=== PATIENT | male | born 1975 | race Caucasian/White ===

== ENCOUNTER 2016-09-06 07:21 | Emergency (ER) | payer BC ==
[2014-12-22 12:59] VITALS: BMI 38.8
[~2016-09-06 07:21] MED LIST: AMBIEN10 MG PO; BACTRIM DS TABL1 TAB PO; BACTROBAN CREAM15 GM TP; CLEOCIN HCL300 MG PO; CYMBALTA30 MG PO; GLIMEPIRIDE4 MG PO; GLUCOPHAGE1000 MG PO; HYDROCHLOROTH12.5 M1 PO; INVOKANA300 MG PO; MOTRIN800 MG PO; NEURONTIN800 MG PO; NORCO 7.5-3251 EACH PO; NUCYNTA100 MG PO; REQUIP0.5 MG PO; ROBAXIN500 MG PO; ZESTORETIC 10/11 TAB PO
[2016-09-06 07:49] LABS: BASOPHILS 0.2 % (0.0-2.0); EOSINOPHILS 2.9 % (0-7); HEMATOCRIT 51.1 % (42.0-54.0); HEMOGLOBIN 17.2 g/dL (13.5-17.5); IMMATURE GRANULOCYTES 0.3 % (0-5); LYMPHOCYTES 44.5 % (15-50); MCH 30.8 pg (26.0-34.0); MCHC 33.7 g/dL (31.0-37.0); MCV 91.6 fL (80.0-100.0); MEAN PLATELET VOLUME 10.6 fL (7.4-10.4); MONOCYTES 10.1 % (2-11); RBC 5.58 10x6/uL (4.20-6.10); RDW 13.8 % (11.5-14.5); WBC 14.2 10x3/uL (4.8-10.8)
[2016-09-06 08:04] LABS: ALKALINE PHOSPHATASE 78 U/L (46-116); ALT (SGPT) 127 U/L (10-68); BILIRUBIN - TOTAL 0.47 mg/dL (0.2-1.3); CALC OSMOLALITY 281 mosm/kg (275-300); CALCIUM 10.7 mg/dL (8.5-10.1); CARBON DIOXIDE 23.8 mmol/L (21.0-32.0); CHLORIDE - SERUM 101 mmol/L (98-107); CREATININE - SERUM 1.3 mg/dL (0.6-1.3); GLUCOSE 140 mg/dL (74-106); PLATELET COUNT 193 10x3/uL (130-400); POTASSIUM - SERUM 4.7 mmol/L (3.5-5.1); PROTEIN - SERUM 8.2 g/dL (6.4-8.2); SODIUM 138 mmol/L (136-145); UREA NITROGEN 24 mg/dL (7-18); eGFR NON AFRICAN AMERICAN 64 mL/min (90-120)
[2016-09-06 08:13] LABS: CHOLESTEROL, TOTAL 154 mg/dL (0-200); CKMB 1.6 U/L (0.0-3.6); CREATINE KINASE 108 UL (21-232); HDL CHOLESTEROL 31 mg/dL (32-96); MAGNESIUM - SERUM 1.7 mg/dL (1.8-2.4); TROPONIN-I < 0.017 ng/mL (0.000-0.060)
[2016-09-06 08:14] LABS: TRIGLYCERIDE 558 mg/dL (30-200)
== END 2016-09-06 10:20 | disposition home or self-care (01) ==
LOC: D.ER 07:21
PROVIDERS: Emergency Medicine
DX: R07.9 Chest pain, unspecified (principal); E11.9 Type 2 diabetes mellitus without complications; R74.0 Nonspecific elevation of levels of transaminase and lactic acid dehydrogenase [LDH]

== ENCOUNTER 2016-10-09 10:52 | Outpatient (CLI) | payer BC ==
[~2016-10-09] VITALS: Ht 188 cm; Wt 128.2 kg
--- NOTE | ~2016-10-09 | HEMODYNAMI ---
PATIENT:DEYSI FIORE MEDICAL RECORD: [id number] : 71 LOCATION:[facility] ADMISSION DATE: 10/09/16 Generatedon:10/09/201613:58 Patient name: DEYSI FIORE Patient #: [id number] SSN: : 1975 Date of study: 10/09/2016 Page: Of Hemodynamic Procedure Report Patient Data Patient Demographics Procedure consent was obtained First Name: DEYSI Gender: Male Last Name: ADEBAYO : 1975 Middle Initial: LUISA Age: 41 year(s) Patient #: [id number] Race: Additional ID: [id number] Contact details Address: [address] [place] [address] [facility] State: [place] City: [place] Zip code: [address] Past Medical History Allergies: No known allergies Admission Admission Data Admission Date: 10/09/2016 Admission Time: 10:52 Height (in.): 74 BSA: 2.51 (m2) Height (cm.): 187.96 BMI: 36.21 (kg/m2) Weight (lbs.): 282 Weight (kg.): 127.91 Lab Results Lab Result Date: 10/09/2016 Lab Result Time: 0:00 Biochemistry Name Units Result Min Max BUN mg/dl 23 --(----)-* 7 18 Creatinine mg/dl 1.1 --(--*-)-- 0.6 1.3 CBC Name Units Result Min Max Hemoglobin g/dl 16 --(--*-)-- 13.5 17.5 Procedure Procedure Types Cath Procedure Diagnostic Procedure LHC LHC w/Coronaries Procedure Description Procedure Date Procedure Date: 10/09/2016 Procedure Start Time: 13:43 Procedure End Time: 13:56 Procedure Staff Name Function Daniel Childress MD Performing Physician Hussein Suazo RT Scrub Kelly Galloway RN Nurse Felipe Tanner RT Job Spotter Emile Banks RT Monitor Procedure Data Cath Procedure Fluoroscopy Diagnostic fluoroscopy Total fluoroscopy Time: 2 time: 2 min min Diagnostic fluoroscopy Total fluoroscopy dose: 850 dose: 850 mGy mGy Contrast Material Contrast Material Type Amount (ml) Isovue 300 74 Entry Location Entry Primary Successful Side Size Upsize Upsize Entry Closure Cunningham ccessful Closure Location (Fr) 1 (Fr) 2 (Fr) Remarks Device Remarks Radial Right 6 Fr Mechanical artery Short Compression Procedure Complications No complications Procedure Medications Medication Administration Route Dosage Oxygen NC 2 l/min Heparin Flush Bag added to field 2 bags (1000units/500ml NS) Lidocaine 2% added to field 20 Radial Cocktail added to field 1 syringe (Verapomil 2mg/Nitro 400mcg/Heparin 1500units) Radial Cocktail I.A. 1 syringe (Verapomil 2mg/Nitro 400mcg/Heparin 1500units) Versed I.V. 1 mg Fentanyl I.V. 50 mcg Versed I.V. 1 mg Fentanyl I.V. 50 mcg Versed I.V. 1 mg Fentanyl I.V. 50 mcg Hemodynamics Rest BSA: 2.51 (m2) HGB: 16 (g/dl) O2 Consumption: Estimated: 309.22 (ml/min) O2 Cons umption indexed: Estimated:123.2 (ml/min/m) Heart Rate: 75 (bpm) Pressure Samples Time Site Value (mmHg) Purpose Heart Use Rate(bpm) 13:47 LV 89/7,9 EDP 74 Gradients Valve Time Site Site Mean SEP/DFP Peak To Heart Use 1 2 (mmHg) (sec/min) Peak Rate (mmHg) (bpm) Aortic 13:48 LV AO 81 Snapshots Pre Cath Intra NCS Post Cath Vital Signs Time Heart Resp SPO2 etCO2 [id number] NIBP Rhythm Pain Sedation Rate (ipm) (%) (mmHg) (mmHg) (mmHg) Status Level (bpm) 13:26:48 67 15 98 0 0 115/62(89) NSR 0 (11) 10(A) , No pain 13:31:06 75 15 98 0 0 118/75(92) NSR 0 (11) 10(A) , No pain 13:35:26 76 14 97 0 0 117/71(96) NSR 0 (11) 10(A) , No pain 13:39:48 67 15 96 0 0 106/66(90) NSR 0 (11) 10(A) , No pain 13:44:04 80 15 97 0 0 110/66(87) NSR 0 (11) 9(A) , No pain 13:48:20 88 15 98 0 0 108/50(71) NSR 0 (11) 9(A) , No pain 13:52:39 86 15 96 0 0 104/65(84) NSR 0 (11) 9(A) , No pain 13:55:53 84 16 97 0 0 106/61(79) NSR 0 (11) 9(A) , No pain Medications Time Medication Route Dose Verified Delivered Reason Notes Effectiveness by by 13:28:12 Oxygen NC 2 l/min Daniel Kelly Per [place] G[place] RN physician 13:28:21 Heparin Flush added 2 bags Daniel Daniel used for Bag to [place] procedure (1000units/500ml field MD HUSSEIN NS) 13:28:27 Lidocaine 2% added 20ml Daniel Daniel used for to vial [place] procedure field MD HUSSEIN 13:28:34 Radial Cocktail added 1 Daniel Daniel used for (Verapomil to syringe [place] procedure 2mg/Nitro field MD HUSSEIN 400mcg/Heparin 1500units) 13:39:21 Versed I.V. 1 mg Daniel Kelly for sedation St. Deysi Galloway RN, MD 13:39:37 Fentanyl I.V. 50 mcg Daniel Kelly for sedation St. Deysi Galloway RN, MD 13:41:50 Versed I.V. 1 mg Daniel Kelly for sedation St. Deysi Galloway RN, MD 13:41:58 Fentanyl I.V. 50 mcg Daniel Kelly for sedation St. Deysi Galloway RN, MD 13:43:40 Fentanyl I.V. 50 mcg Daniel Kelly for sedation St. Deysi Galloway RN, MD 13:43:52 Versed I.V. 1 mg Daniel Kelly for sedation St. Deysi Galloway RN, MD 13:45:00 Radial Cocktail I.A. 1 Daniel Daniel for (Verapomil syringe [place] vasodilation 2mg/Eve HUSSEIN MD 400mcg/Heparin 1500units) Procedure Log Time Note 13:05:42 Felipe MANLEY(R) (CV) sent for patient. Start room use. 13:17:36 ACC Patient presents with Stable Angina CCS Anginal Class 2--Slight limitation of ordinary activity. 13:17:39 Diagnostic Cath status Elective 13:18:53 Time tracking: Regular hours 13:18:58 Plan of Care:Hemodynamics will remain stable., Cardiac rhythm will remain stable., Comfort level will be maintained., Respiratory function will remain adequate., Patient/ family verbilizes understanding of procedure., Procedure tolerated without complication., Recovers from procedure without complications.. 13:19:26 Patient received from Pre/Post Procedure Room to CCL 1 Alert and oriented. Tansferred to table in Supine position. 13:19:32 Warm blankets applied, and braden hugger turned on for patient comfort. 13::32 Correct patient and procedure confirmed by team. ::34 Signed procedure consent form obtained from patient. 13::35 ECG and BP/O2 sat monitors applied to patient. 13:25:34 Vital chart was started 13:28:12 Oxygen 2 l/min NC was given by Kelly Galloway RN; Per physician; 13:28:21 Heparin Flush Bag (1000units/500ml NS) 2 bags added to field was given by Daniel Childress MD; used for procedure; 13:28:27 Lidocaine 2% 20ml vial added to field was given by Daniel Childress MD; used for procedure; 13:28:34 Radial Cocktail (Verapomil 2mg/Nitro 400mcg/Heparin 1500units) 1 syringe added to field was given by Daniel Childress MD; used for procedure; ::58 Baseline sample Acquired. 13:29:02 Rhythm: sinus rhythm 13:29:03 Full Disclosure recording started 13:29:12 H&P Date Dictated: 09/25/2016 Within 30 days and on chart., H&P Addendum completed by physician on day of procedure. (MUST COMPLETE FOR ALL OUTPATIENTS). 13:29:14 Pre-procedure instructions explained to patient. 13:29:15 Pre-op teaching completed and patient verbalized understanding. 13:29:16 Family in waiting room. 13:29:18 Patient NPO since Midnight. 13:29:33 Patient allergic to No known allergies 13:29:35 Is the patient allergic to Iodine/contrast media? No. 13:29:41 Is patient on blood thinner?No 13:29:43 Patient diabetic? Yes. 13:29:44 If diabetic: On Metformin? Yes 13:29:47 If on Metformin: Last Dose? 10/08/2016 13:29:49 ----Pre-sedation anethsthesia assessment.---- 13:29:52 Previous problem with sedation/anesthesia? No ? 13:29:53 Snore? Yes 13:29:55 Sleep apnea? No 13:29:56 Deviated septum? No 13:29:57 Opens mouth fully? Yes 13:29:59 Sticks out tongue? Yes 13:30:01 Airway obstruction? No ? 13:30:03 Dentures? No ? 13:30:10 Pre procedure: right dorsailis pedis pulse 1+ Palpable, but thready & weak; easily obliterated 13:30:14 Modified Nikos's test Ulnar < 7 seconds 13:30:16 Patient pain scale 0/10 ?. 13:30:26 IV patent on arrival in left antecubital with 0.9% NaCl at 10ml/hr. 13:38:53 Right Radial & Right Groin area was prepped with chlora-prep and draped in sterile fashion 13:38:53 Alarms reviewed by R. N. 13:38:54 Sharps counted by scrub and verified by R.N. 13:39:00 --------ALL STOP TIME OUT------ 13:39:00 Final Timeout: patient, procedure, and site verified with staff and physician. All members of the team are in agreement. 13:39:02 Right Radial & Right Groin site verified by team. 13:39:05 Physical assessment completed. ASA score P 2 - A patient with mild systemic disease as per Daniel Childress MD. 13:39:12 Sedation plan: IV Moderate Sedation Versed, Fentanyl 13:39:21 Versed 1 mg I.V. was given by Kelly Galloway RN; for sedation; 13:39:37 Fentanyl 50 mcg I.V. was given by Kelly Galloway RN; for sedation; 13:41:24 Patient Height : 74 inches 13:41:29 Patient Weight : 282 lbs 13:41:50 Versed 1 mg I.V. was given by Kelly Galloway RN; for sedation; 13:41:58 Fentanyl 50 mcg I.V. was given by Kelly Galloway RN; for sedation; 13:42:44 Zero performed for pressure channel P1 13:42:47 Zero performed for pressure channel P1 13:42:49 Zero performed for pressure channel P1 13:42:58 Zero performed for pressure channel P1 13:43:05 Use device set Radial Dx 13:43:06 Acist Syringe opened to sterile field. 13:43:07 Medline Cath Pack opened to sterile field. 13:43:07 Bag Decanter opened to sterile field. 13:43:08 Terumo 6Fr Slender Glidesheath opened to sterile field. 13:43:08 St Сергей 260cm J .035 wire opened to sterile field. 13:43:08 Acist Hand Control opened to sterile field. 13:43:09 Acist Manifold opened to sterile field. 13:43:09 Tegaderm 4 x 4 opened to sterile field. 13:43:11 Procedure started. 13:43:33 Local anesthetic to right radial artery with Lidocaine 2% by Daniel Childress MD.INITIAL ACCESS ONLY 13:43:40 Fentanyl 50 mcg I.V. was given by Kelly Galloway RN; for sedation; 13:43:41 A 6 Fr Short sheath was inserted into the Right Radial artery 13:43:52 Versed 1 mg I.V. was given by Kelly Galloway RN; for sedation; 13:45:00 Radial Cocktail (Verapomil 2mg/Nitro 400mcg/Heparin 1500units) 1 syringe I.A. was given by Daniel Childress MD; for vasodilation; 13:45:00 Lab Result : Hemoglobin 16 g/dl 13:45:00 Lab Result : Creatinine 1.1 mg/dl 13:45:00 Lab Result : BUN 23 mg/dl 13:45:53 Zero performed for pressure channel P1 13:45:56 Zero performed for pressure channel P1 13:45:59 Zero performed for pressure channel P1 13:46:07 Zero performed for pressure channel P1 13:46:22 Zero performed for pressure channel P1 13:47:17 5 Fr SPECIAL guide catheter was inserted over the wire 13:47:27 LV angiography performed. 13:47:36 LV gram done using CHASE 13:47:38 LV hemodynamics recorded. 13:47:45 Injector settings: Ml/sec: 5, Volume: 15, 13:48:02 EF : 55 % 13:48:57 LCA angiography performed. 13:52:06 RCA angiography performed. 13:52:08 Catheter removed. 13:52:20 Contrast amount:Isovue 300 74ml. 13:52:36 Fluoroscopy time 02.00 minutes. 13:52:41 Fluoroscopy dose: 850 mGy 13:52:41 Flurop Dose total: 850 13:52:51 Sheath removed intact; hemostasis achieved with Mechanical Compression to the Right Radial artery. 13:52:53 Procedure ended.(Physican Out) 13:53:01 Sharps counted by scrub and verified by R.N. 13:53:03 TR band inflated with 9cc of air. 13:53:05 Insertion/operative site no bleeding no hematoma. 13:53:12 Post right radial artery:stable 13:53:14 Post Procedure Pulses reassessed and unchanged 13:53:16 Post procedure: right dorsailis pedis pulse 1+ Palpable, but thready & weak; easily obliterated. 13:53:20 Post procedure rhythm: sinus rhythm 13:53:22 Post procedure instruction explained to patient.Patient verbalizes understanding. 13:53:54 Terumo TR Band Standard opened to sterile field. 13:53:55 High Pressure Extension Tubing (Pratt) opened to sterile field. 13:56:11 Procedure Complication : No complications 13:56:13 Procedure and supply charges have been captured, reviewed, submitted and are correct. 13:56:14 Vital chart was stopped 13:56:15 See physician's report for complete and final results. 13:56:17 Report given to Pre/Post Procedure Room. 13:56:21 Patient transfered to Pre/Post Procedure Room with Stretcher. 13:56:23 Procedure ended. 13:56:23 Full Disclosure recording stopped 13:56:26 End room use (Document Last) Device Usage Item Name Manufacture Quantity Catalog Hospital Part Current Minimal Lot# / Number Charge Number Stock Stock Serial# Code [facility] 1 [id number] [id number] [id number] [id number] 20 Syringe [employer] Medline Cardinal 1 [id number] [id number] 96665 [id number] 5 Cath Pack Health Bag Microtek 1 2002S [id number] 16045 167208 5 [employer]. Terumo 6Fr Terumo 1 [id number] 526284 424387 623027 [address] St Сергей 1 [id number] 626385 129373 675865 30 260cm J .035 wire Acist Hand Acist 1 32210 749744 228601 707998 5 Control Medical [employer] Inc Acist Acist 1 07678 942060 038554 868093 5 Manifold Medical [employer] Inc Tegaderm 4 3M 1 [id number] 698920 088280 343613 5 x 4 Terumo TR Terumo 1 [id number] 535842 769493 519071 40 Band Standard High Merit 1 [id number] 256716 31777 238253 10 Pressure Medical Extension Tubing (Pratt) Signature Audit Huxley Stage Time Signature Unsigned Intra-Procedure 10/09/2016 Emile Banks 1:58:15 PM RT(R) Signatures Monitor : Emile Banks RT Signature : Date : Time : [facility] [address] [place] [address]
[2016-10-09] MEDS ORDERED: BAYER CHEWABLE81 MG PO (11:16)
[2016-10-09] MEDS ORDERED: ADDERALL 20 MG20 M1 PO (11:16)
[2016-10-09 11:19] VITALS: BP 118/77; Ht 188 cm; Wt 128.2 kg
[2016-10-09 11:28] LABS: BASOPHILS 0.3 % (0.0-2.0); EOSINOPHILS 1.6 % (0-7); HEMATOCRIT 46.7 % (42.0-54.0); IMMATURE GRANULOCYTES 0.3 % (0-5); LYMPHOCYTES 36.9 % (15-50); MCH 30.7 pg (26.0-34.0); MCHC 34.3 g/dL (31.0-37.0); MCV 89.6 fL (80.0-100.0); MEAN PLATELET VOLUME 10.1 fL (7.4-10.4); MONOCYTES 8.8 % (2-11); NEUTROPHILS 52.1 % (40-80); PLATELET COUNT 155 10x3/uL (130-400); RBC 5.21 10x6/uL (4.20-6.10); RDW 14.4 % (11.5-14.5); WBC 7.9 10x3/uL (4.8-10.8)
[2016-10-09 11:42] LABS: CALC OSMOLALITY 279 mosm/kg (275-300); CALCIUM 9.3 mg/dL (8.5-10.1); CARBON DIOXIDE 25.2 mmol/L (21.0-32.0); CHLORIDE - SERUM 100 mmol/L (98-107); CREATININE - SERUM 1.1 mg/dL (0.6-1.3); GLUCOSE 171 mg/dL (74-106); POTASSIUM - SERUM 4.1 mmol/L (3.5-5.1); SODIUM 136 mmol/L (136-145); UREA NITROGEN 23 mg/dL (7-18); eGFR NON AFRICAN AMERICAN 78 mL/min (90-120)
--- NOTE | 2016-10-09 16:44 | NUR ---
1430-TR BAND INTACT, NO BLEEDING NOTED
--- NOTE | 2016-10-09 16:47 | NUR ---
1500-TR BAND INTACT, NO HEMATOMA OR BLEEDING NOTED
--- NOTE | 2016-10-13 10:40 | OP ---
PATIENT NAME: DEYSI FIORE MEDICAL RECORD: [id number] :71 LOCATION:D.[facility] ADMISSION DATE: SURGEON: SHEA JEAN MD DATE OF OPERATION: 10/09/2016 PROCEDURES: Left heart catheterization, selective coronary angiography, right radial approach. CATHETERS: A 5-Lebanese sheath, 5/4 left and right Malcolm, 5/4 pig. The procedure was well tolerated. The patient returned to rodriguez, sheath removed. TR band was placed. FINDINGS: Left ventriculography in 30-degree CHASE view: Normal wall motion, normal systolic function. CORONARY ANATOMY: Left main: Left main is free of disease. LAD: Free of disease in the diagonal system. CIRCUMFLEX: Free of disease in the marginal system. RIGHT CORONARY ARTERY: Some areas of ectasia with no flow obstructive disease. IMPRESSION: No evidence of obstructive coronary artery disease, false positive treadmill stress testing. TRANSINT:[id number] Voice Confirmation ID: [id number] DOCUMENT ID: [id number] SHEA JEAN MD at 1040 CC: [id number] DICTATION DATE: 10/09/16 1401 PACK MULE WORKER: 10/09/162005 DEP CLI 10/09/16 [facility] [address] [place] [address]
== END 2016-10-09 16:15 | disposition home or self-care (01) ==
LOC: D.CATH 10:52
PROVIDERS: Internal Medicine Interventional Cardiology
DX: R94.39 Abnormal result of other cardiovascular function study (principal)

== ENCOUNTER 2018-01-28 19:53 | Emergency (ER) | payer BC ==
[~2018-01-28] VITALS: Ht 188 cm; Wt 118.2 kg
[~2018-01-28 19:53] MED LIST changes: +ADDERALL 20 MG20 M1 PO; +BAYER CHEWABLE81 MG PO
[2018-01-28 20:17] VITALS: Ht 188 cm; Wt 118.2 kg
[2018-01-28 20:54] LABS: BASOPHILS 0.2 % (0-2); EOSINOPHILS 1.2 % (0-7); HEMATOCRIT 40.9 % (42.0-54.0); HEMOGLOBIN 14.2 g/dL (13.5-17.5); IMMATURE GRANULOCYTES 0.3 % (0-5); LYMPHOCYTES 32.1 % (15-50); MCH 30.8 pg (26.0-34.0); MCHC 34.7 g/dL (31.0-37.0); MCV 88.7 fL (80.0-100.0); MEAN PLATELET VOLUME 9.6 fL (7.4-10.4); MONOCYTES 8.4 % (2-11); NEUTROPHILS 57.8 % (40-80); PLATELET COUNT 205 10x3/uL (130-400); RBC 4.61 10x6/uL (4.20-6.10); RDW 13.8 % (11.5-14.5); WBC 12.1 10x3/uL (4.8-10.8)
[2018-01-28 21:02] LABS: INR 1.03 (0.85-1.17); PROTIME 13.1 SECONDS (11.6-15.0)
[2018-01-28 21:14] LABS: ALBUMIN 3.7 g/dL (3.4-5.0); ALKALINE PHOSPHATASE 65 U/L (46-116); ALT (SGPT) 50 U/L (10-68); BILIRUBIN - TOTAL 0.39 mg/dL (0.2-1.3); CALC OSMOLALITY 287 mosm/kg (275-300); CALCIUM 9.3 mg/dL (8.5-10.1); CARBON DIOXIDE 26.1 mmol/L (21.0-32.0); CHLORIDE - SERUM 104 mmol/L (98-107); CREATININE - SERUM 1.1 mg/dL (0.6-1.3); GLUCOSE 200 mg/dL (74-106); POTASSIUM - SERUM 4.3 mmol/L (3.5-5.1); PROTEIN - SERUM 7.7 g/dL (6.4-8.2); SODIUM 140 mmol/L (136-145); UREA NITROGEN 21 mg/dL (7-18); eGFR NON AFRICAN AMERICAN 77 mL/min (90-120)
[2018-01-28 21:25] LABS: CKMB 2.2 U/L (0.0-3.6); CREATINE KINASE 191 UL (21-232); PRO BNP 34 pg/mL (0-125)
[2018-01-28 21:27] LABS: TROPONIN-I < 0.017 ng/mL (0.000-0.060)
[2018-01-28] MEDS ORDERED: VIBRAMYCIN 100100 MG PO (21:58)
[2018-01-28] MEDS ORDERED: TORADOL10 MG PO (21:58)
[2018-01-28 23:04] VITALS: BP 155/82
== END 2018-01-28 22:39 | disposition home or self-care (01) ==
LOC: D.ER 19:53
PROVIDERS: Family Medicine
DX: R91.8 Other nonspecific abnormal finding of lung field (principal); E11.9 Type 2 diabetes mellitus without complications; I10 Essential (primary) hypertension; R07.81 Pleurodynia

== ENCOUNTER 2019-11-14 00:11 | Emergency (ER) | payer SELFPAY ==
[~2019-11-14] VITALS: Ht 188 cm; Wt 112.7 kg
[~2019-11-14 00:11] MED LIST changes: +TORADOL10 MG PO; +VIBRAMYCIN 100100 MG PO
[2019-11-14 00:20] VITALS: BP 156/114; Ht 188 cm; Wt 112.7 kg
[2019-11-14] MEDS ORDERED: PROVENTIL/2.5 MG/3 M INH (00:44)
[2019-11-14] MEDS ORDERED: GLUCOPHAGE1000 MG PO (00:45)
[2019-11-14] MEDS ORDERED: LIPITOR20 MG PO (00:46)
== END 2019-11-14 00:50 | disposition home or self-care (01) ==
LOC: D.ER 00:11
DX: R06.02 Shortness of breath (principal); Z20.828 Contact with and (suspected) exposure to other viral communicable diseases; E11.9 Type 2 diabetes mellitus without complications; I10 Essential (primary) hypertension